=== PATIENT | female | born 1960 | race Caucasian/White ===

== ENCOUNTER → 2017-11-15 | Outpatient (CLI) | payer BC ==
[~2017-11-15] MED LIST: ALPR-411 PO; ATV1 PO; CALC1CHW71 PO; CETI10TA84 PO; CHOL100010 PO; DVN80 PO; ESCI10TA17 PO; ESCI1TAB10 PO; NORE1TAB34 PO; RXC5 PO; SIMV20TA2 PO
--- NOTE | 2017-11-15 10:19 | DIAGNOSTIC IMAGING REPORT ---
CHEST 2 VIEWS ROUTINE CLINICAL HISTORY: 57 years-old Female presenting with preoperative assessment for osteoarthritis of the left knee. TECHNIQUE: PA and lateral views of the chest were obtained. COMPARISON: 01/21/2015. FINDINGS: Cardiomediastinal silhouette normal. Stable calcification projects over the left upper lung either calcified granuloma or related to costochondral calcification. Bandlike opacities at the lung bases as on prior exam. Lungs and pleural spaces otherwise clear. Dextroscoliotic curvature of the thoracic spine. Cholecystectomy clips noted. IMPRESSION: 1. Minimal basilar opacities likely atelectasis or scarring. No convincing evidence of acute cardiopulmonary disease. Electronically signed by: Cristian Small M.D. 11/15/2017 10:18 AM Dictated Date/Time: 11/15/2017 10:16 AM
[2017-11-15 10:23] LABS: BASO % 0.7 %; BASO ABS # 0.06 K/uL (0-0.2); EOS % 2.2 %; HEMATOCRIT 41.4 % (37-47); HEMOGLOBIN 13.4 g/dL (12.0-16.0); IG# 0.01 K/uL (0.00-0.02); LYMPH % 20.1 %; LYMPH ABS # 1.79 K/uL (1.2-3.4); MEAN CELL VOLUME 90.6 fL (80-100); MEAN CORPUSCULAR HEMOGLOBIN 29.3 pg (25-34); MEAN CORPUSCULAR HGB CONC 32.4 g/dl (32-36); MEAN PLATELET VOLUME 10.7 fL (7.4-10.4); MONO % 6.6 %; MONO ABS # 0.59 K/uL (0.11-0.59); NEUT % 70.3 %; NEUT ABS # 6.27 K/uL (1.4-6.5); PLATELET COUNT 309 K/uL (130-400); RED CELL DISTRIBUTION WIDTH SD 46.5 fL (36.4-46.3); WHITE BLOOD COUNT 8.92 K/uL (4.8-10.8)
[2017-11-15 10:33] LABS: PTT PATIENT 25.5 SECONDS (21.0-31.0)
[2017-11-15 11:00] LABS: ALBUMIN 3.8 gm/dl (3.4-5.0); BLOOD UREA NITROGEN 19 mg/dl (7-18); CARBON DIOXIDE 30 mmol/L (21-32); CREATININE 1.01 mg/dl (0.60-1.20); GLUCOSE 83 mg/dl (70-99); POTASSIUM 4.9 mmol/L (3.5-5.1); SODIUM 138 mmol/L (136-145)
[2017-11-15 11:32] LABS: HEMOGLOBIN A1C 5.3 % (4.5-5.6)
== END | disposition home or self-care (01) ==
LOC: C.CPL 08:35
PROVIDERS: ATTEND Orthopaedic Surgery
DX: Z01.812 Encounter for preprocedural laboratory examination (principal); Z01.810 Encounter for preprocedural cardiovascular examination; Z01.818 Encounter for other preprocedural examination; R91.8 Other nonspecific abnormal finding of lung field

== ENCOUNTER 2024-10-20 05:53 | Inpatient (IN) ==
--- NOTE | 2024-09-21 13:35 | PAT Medication Instructions ---
Medication Instructions Date of Service September 21, 2024 Home Medications escitalopram oxalate 20 mg tablet (Lexapro) 20 mg PO QAM simvastatin 20 mg tablet (Zocor) 20 mg PO QPM alprazolam 0.5 mg tablet (Xanax) 0.5 mg PO BID cholecalciferol (vitamin D3) 25 mcg (1,000 unit) tablet 5,000 unit PO QAM denosumab 60 mg/mL subcutaneous syringe (Prolia) 60 mg subcut UD montelukast 10 mg tablet (Singulair) 10 mg PO QPM pantoprazole 40 mg tablet,delayed release (Protonix) 40 mg PO QAM polyethylene glycol 3350 17 gram/dose oral powder (Miralax) 17 g PO DAILY PRN Constipation valsartan 80 mg tablet 80 mg PO QAM acetaminophen 500 mg tablet (Pain Reliever (acetaminophen)) 1,000 mg PO TID PRN Pain hydroxychloroquine 200 mg tablet (Plaquenil) 200 mg PO QAM ASK your prescriber and surgeon denosumab 60 mg/mL subcutaneous syringe (Prolia) 60 mg subcut UD DO NOT take the morning of surgery cholecalciferol (vitamin D3) 25 mcg (1,000 unit) tablet 5,000 unit PO QAM polyethylene glycol 3350 17 gram/dose oral powder (Miralax) 17 g PO DAILY PRN Constipation valsartan 80 mg tablet 80 mg PO QAM Take morning of surgery With a small sip of water, OTHERWISE NOTHING TO EAT OR DRINK AFTER MIDNIGHT: escitalopram oxalate 20 mg tablet (Lexapro) 20 mg PO QAM alprazolam 0.5 mg tablet (Xanax) 0.5 mg PO BID pantoprazole 40 mg tablet,delayed release (Protonix) 40 mg PO QAM acetaminophen 500 mg tablet (Pain Reliever (acetaminophen)) 1,000 mg PO TID PRN Pain (if needed) hydroxychloroquine 200 mg tablet (Plaquenil) 200 mg PO QAM Take evening before surgery simvastatin 20 mg tablet (Zocor) 20 mg PO QPM alprazolam 0.5 mg tablet (Xanax) 0.5 mg PO BID montelukast 10 mg tablet (Singulair) 10 mg PO QPM polyethylene glycol 3350 17 gram/dose oral powder (Miralax) 17 g PO DAILY PRN Constipation (if needed) acetaminophen 500 mg tablet (Pain Reliever (acetaminophen)) 1,000 mg PO TID PRN Pain (if needed) Other Notes If you have any questions please call us at [phone] or [phone] or [phone] or [phone]
--- NOTE | 2024-09-28 10:22 | Anesthesiology Consultation ---
Date of Service September 28, 2024 Assessment & Plan (1) Encounter for pre-operative examination: Chart Review Chart Review: Acceptable Risk for Surgery (pending surgeon ordered PCP clearance ) and Patient NOT seen in Pre Admission Testing - Awaiting PCP clearance 10/10/24 (Dr Black) Scopolamine patch ordered for DOS per patient request (hx of PONV- effective in the past; denies side effects) Per PAT appt on 09/28/24, no recent illness/disease exposures, illness related symptoms, or recent illness/disease positive tests. Will leave to surgeon's discretion if preop Covid testing needed Left Total Knee Arthroplasty 12/14/17= Done under SAB at L3-4 with 1 attempt Teaching & Discussion Pre-Anesthesia Teaching/Discussion Notes: Instructed NPO after midnight before surgery,except medications with 15 cc of water. Medication instructions provided according to the [facility] guidelines. History Surgery Operation Date: 10/20/24 11:05 Proposed Procedures p L4-S1 Hardware Removal, L3-L4 Decompression, L3-S1 Fusion - Manny Enriquez, Height/Weight Height: 5 ft 2 in Weight: 97.2 kg Allergies Allergy/AdvReac Type Severity Reaction Status Date / Time Iodinated Contrast Media Allergy Intermediate Difficulty Verified 09/28/24 10:47 [Iodinated Contrast- Oral Breathing and IV Dye] hydromorphone [From Dilaudid] AdvReac Hallucinati Verified 09/21/24 11:23 ng Medications Home Medications Medication Instructions Recorded Confirmed Last Taken escitalopram oxalate 20 mg tablet 20 mg PO QAM #0 tabs 11/15/17 09/21/24 12/14/17 02:30 (Lexapro) simvastatin 20 mg tablet (Zocor) 20 mg PO QPM #0 tabs 11/15/17 09/21/24 12/13/17 20:30 alprazolam 0.5 mg tablet (Xanax) 0.5 mg PO BID #0 tabs 07/04/24 09/21/24 Unknown cholecalciferol (vitamin D3) 25 5,000 unit PO QAM #0 tabs 07/04/24 09/21/24 Unknown mcg (1,000 unit) tablet denosumab 60 mg/mL subcutaneous 60 mg subcut UD 07/04/24 09/21/24 Unknown syringe (Prolia) montelukast 10 mg tablet 10 mg PO QPM 07/04/24 09/21/24 Unknown (Singulair) pantoprazole 40 mg tablet,delayed 40 mg PO QAM 07/04/24 09/21/24 Unknown release (Protonix) polyethylene glycol 3350 17 17 g PO DAILY PRN Constipation 07/04/24 09/21/24 Unknown gram/dose oral powder (Miralax) valsartan 80 mg tablet 80 mg PO QAM #0 tabs 07/04/24 09/21/24 Unknown acetaminophen 500 mg tablet (Pain 1,000 mg PO TID PRN Pain 09/21/24 09/21/24 Unknown Reliever (acetaminophen)) hydroxychloroquine 200 mg tablet 200 mg PO QAM 09/21/24 09/21/24 Unknown (Plaquenil) Past Medical History Medical History Anxiety Chronic back pain Depression GERD (gastroesophageal reflux disease) well controlled and stable Hiatal hernia History of diverticulitis no recent flares (last flare 11/2023 with perforated bowel) Hx of basal cell carcinoma s/ excision Hx of osteoarthritis Hx of osteoporosis Hx of rheumatoid arthritis Follows with rheum- Dr. Mason Hyperlipidemia Hypertension Lumbar stenosis with neurogenic claudication Morbid obesity with BMI of 40.0-44.9, adult Nausea after anesthesia Peptic ulcer disease hx Scoliosis Exercise / Class Metabolic Activity III < 4 Walking/Shop/Light housework (no chest pain or SOB with flat surface ambulation - no ambulation aids needed ) Past Family History Family History Denies family history of Rheumatoid arthritis Past Surgical History Surgical History Fusion of spine (2014) Lumbar, L4-S1 History of adenoidectomy History of cholecystectomy History of colostomy reversal 03/2024 History of hand surgery multiple History of hysterectomy History of intestinal surgery 11/21/23, w/ colostomy creation; for perforated bowel due to diverticulitis History of tonsillectomy History of tooth extraction History of total left knee replacement (TKR) (2017) Hx of basal cell carcinoma excision Hx of colonoscopy (2023) Past Anesthesia History No Hx of Anesthesia Complications (with exception to PONV ) and No Family Hx of Anesthesia Complications History of PONV No Hx of Motion Sickness and History of PONV (improved with scop patch- requesting scop patch for upcoming procedure ) Social History Smoking Status: Former smoker Do You Dip or Chew Tobacco: No Smoking End Date: 30+ years ago Hx Alcohol Use: Yes alcohol intake frequency: holidays/special occasions only Hx Substance Use: No substance use type: does not use Review of Systems Patient denies chest pain, shortness of breath, dyspnea on exertion, cough, wheezing, palpitations. No hx of seizures, stroke, CA, apnea/snoring. No hx of blood clots or blood transfusions Physical Exam Vital Signs VITALS BP 104/65 P 80 TEMP 98.4 SP02 98% RESP 16 Constitutional no acute distress ENMT Mouth: no TMJ clicking and no chipped teeth Thyromental Distance: > or= 3.5 Finger Breadths (3.5) Mallampati Class: I Top and bottom partial dentures Neck neck extension not limited Respiratory normal respiratory effort; no respiratory distress Auscultation: lungs clear to auscultation bilaterally; no wheezes Cardiovascular Rate/Rhythm: regular rate and regular rhythm Heart Sounds: no murmur Vessels: no carotid bruit Musculoskeletal Spine: no pain with cervical ROM Extremities: extremities normal to inspection Psychiatric Orientation: alert Lab Results Anesthesia Preop Results Results Anesthesia Widget: WBC 9.48 K/ul (4.8-10.8) 09/28/24 Hgb 13.0 g/dl (12.0-16.0) 09/28/24 Hct 40.0 % (37.0-47.0) 09/28/24 Plt 328 K/uL (130-400) 09/28/24 Na 137 mmol/L (136-145) 09/28/24 K 4.5 mmol/L (3.5-5.1) 09/28/24 Cl 102 mmol/L (98-107) 09/28/24 CO2 27 mmol/L (21-32) 09/28/24 BUN 25 mg/dl (6-23) H 09/28/24 Creat 1.00 mg/dl (0.6-1.2) 09/28/24 Glucose Level 95 mg/dl (70-99(Fasting)) 09/28/24 PT 10.3 Seconds (9.0-12.0) 09/28/24 PTT 26 Seconds (21-31) 09/28/24 INR 0.9 (0.9-1.1) 09/28/24 TSH 2.010 uIU/mL (0.30-4.50) 08/16/24 Urine Color Yellow 09/28/24 Urine Appearance Clear (Clear) 09/28/24 Urine pH 5.5 (4.5-7.5) 09/28/24 Urine Specific Center 1.021 (1.000-1.030) 09/28/24 Urine Protein Negative (Negative) 09/28/24 Urine Glucose (UA) Negative (Negative) 09/28/24 Urine Ketones Negative (Negative) 09/28/24 Urine Blood Negative (Negative) 09/28/24 Urine Nitrite Negative (Negative) 09/28/24 Urine Bilirubin Negative (Negative) 09/28/24 Urine Urobilinogen Negative (Negative) 09/28/24 Urine Leukocyte Esterase Trace (Negative) H 09/28/24 Urine WBC (Auto) 0-5 /hpf (0-5) 09/28/24 Urine RBC (Auto) 0-2 /hpf (0-2) 09/28/24 Urine Hyaline Casts (Auto) 0-2 /lpf (0-2) 09/28/24 Urine Epithelial Cells (Auto) 0-2 /hpf (0-2) 09/28/24 Urine Bacteria (Auto) None Seen (None Seen) 09/28/24 Blood Type B Positive 09/28/24 Antibody Screen NEGATIVE 09/28/24 Testing Electrocardiogram Date: 09/28/24 Findings: + NSR @ (75bpm) Normal EKG per cardio Chest X-Ray Date: 09/28/24 Findings: + NAD FINDINGS: Heart size and pulmonary vasculature are normal. No consolidation or pleural effusion. Stable scoliosis Cervical Spine Date: 09/28/24 FINDINGS: No fracture or subluxation. Disc spaces are maintained. No abnormal translation seen with flexion and extension. IMPRESSION: No abnormal translation seen.
[2024-10-20] MEDS: LR 15ML/HR IV SCH (06:41)
[2024-10-20] MEDS: ACETAMINOPHEN 500 MG TAB PO SCH (06:43)
[2024-10-20] MEDS: GABAPENTIN 600 MG DOSE PO SCH (06:43)
[2024-10-20] MEDS: CeleBREX 200 MG CAP PO SCH (06:43)
[2024-10-20] MEDS: LR 60ML/HR IV SCH (06:44)
[2024-10-20] MEDS: SCOPOLAMINE 1 MG/72 HR TDSY PATCH TD ONE (06:53)
[2024-10-20] MEDS ORDERED: PROPOFOL IV EMULSION 10 MG/ML 100 ML VIAL IV ONE (06:54)
[2024-10-20] MEDS ORDERED: ONDANSETRON INJ 2 MG/ML 2 ML VIAL ONE (06:54)
[2024-10-20] MEDS ORDERED: ROCURONIUM BROMIDE 10 MG/ML 5 ML VIAL IV ONE (06:54)
[2024-10-20] MEDS ORDERED: PROPOFOL IV EMULSION 10 MG/ML 20 ML VIAL IV ONE (06:54)
[2024-10-20] MEDS ORDERED: LIDOCAINE 2% 2 ML VIAL/AMP(20MG/ML) INFIL ONE (06:54)
[2024-10-20] MEDS ORDERED: MIDAZOLAM HCL 1 MG/ML 2ML VIAL ONE (06:54)
[2024-10-20] MEDS ORDERED: DEXAMETHASONE SOD INJ 4 MG/ML VIAL ONE (06:54)
[2024-10-20] MEDS ORDERED: SUGAMMADEX SODIUM 200 MG/2 ML VIAL IV ONE ×2 (06:55)
[2024-10-20] MEDS ORDERED: ATROPINE SULFATE 0.1 MG/ML 10ML SYR IV PRN (07:21)
[2024-10-20] MEDS ORDERED: PROMETHAZINE HCL 6.25 MG in SODIUM CHLORIDE 0.9% 50 ML IV PRN (07:21)
--- NOTE | 2024-10-20 07:41 | History & Physical Bridge Note ---
Date of Service October 20, 2024 History & Physical Bridge Note I have examined the patient, reviewed the History & Physical and in the interval since the performance of the History & Physical I have noted the following changes of clinical significance: no changes noted
--- NOTE | 2024-10-20 07:43 | History & Physical Report ---
Date of Service October 20, 2024 Assessment & Plan (1) Multilevel lumbosacral spondylosis with radiculopathy: Plan: Removal of L4-S1 L3-4 decompression, fusion L3-S1 History of Present Illness Chief Complaint: Back and leg pain Primary Care Provider: Khari Black This is a 64-year-old female presents for chronic assessment back and leg pain after failing course of nonoperative care she is here for surgical invention. Allergies Allergy/AdvReac Type Severity Reaction Status Date / Time Iodinated Contrast Media Allergy Intermediate Difficulty Verified 10/20/24 05:59 [Iodinated Contrast- Oral Breathing and IV Dye] hydromorphone [From Dilaudid] AdvReac Severe Hallucinati Verified 10/20/24 05:59 ng Home Medications Medication Instructions Recorded Confirmed Type escitalopram oxalate 20 mg tablet 20 mg PO QAM #0 tabs 11/15/17 10/20/24 History (Lexapro) simvastatin 20 mg tablet (Zocor) 20 mg PO QPM #0 tabs 11/15/17 10/20/24 History alprazolam 0.5 mg tablet (Xanax) 0.5 mg PO BID #0 tabs 07/04/24 10/20/24 History cholecalciferol (vitamin D3) 25 5,000 unit PO QAM #0 tabs 07/04/24 10/20/24 History mcg (1,000 unit) tablet denosumab 60 mg/mL subcutaneous 60 mg subcut UD 07/04/24 10/20/24 History syringe (Prolia) montelukast 10 mg tablet 10 mg PO QPM 07/04/24 10/20/24 History (Singulair) pantoprazole 40 mg tablet,delayed 40 mg PO QAM 07/04/24 10/20/24 History release (Protonix) polyethylene glycol 3350 17 17 g PO DAILY PRN Constipation 07/04/24 10/20/24 History gram/dose oral powder (Miralax) valsartan 80 mg tablet (Diovan) 80 mg PO QAM #0 tabs 07/04/24 10/20/24 History acetaminophen 500 mg tablet (Pain 1,000 mg PO TID PRN Pain 09/21/24 10/20/24 History Reliever (acetaminophen)) hydroxychloroquine 200 mg tablet 200 mg PO QAM 09/21/24 10/20/24 History (Plaquenil) Past Med/Surg History Problem List (Updated 10/20/24 @ 07:43 by Manny Enriquez, DO) Multilevel lumbosacral spondylosis with radiculopathy Rheumatoid arthritis Osteoporosis Hx of total knee arthroplasty Encounter for pre-operative examination Osteoarthritis Medical History Anxiety Chronic back pain Depression GERD (gastroesophageal reflux disease) well controlled and stable Hiatal hernia History of diverticulitis no recent flares (last flare 11/2023 with perforated bowel) Hx of basal cell carcinoma s/ excision Hx of osteoarthritis Hx of osteoporosis Hx of rheumatoid arthritis Follows with rheum- Dr. Mason Hyperlipidemia Hypertension Lumbar stenosis with neurogenic claudication Morbid obesity with BMI of 40.0-44.9, adult Nausea after anesthesia Peptic ulcer disease hx Scoliosis Surgical History Fusion of spine (2014) Lumbar, L4-S1 History of adenoidectomy History of cholecystectomy History of colostomy reversal 03/2024 History of hand surgery multiple History of hysterectomy History of intestinal surgery 11/21/23, w/ colostomy creation; for perforated bowel due to diverticulitis History of tonsillectomy History of tooth extraction History of total left knee replacement (TKR) (2017) Hx of basal cell carcinoma excision Hx of colonoscopy (2023) Family History Denies family history of Rheumatoid arthritis Social History Smoking Status: Former smoker Smoking End Date: 30+ years ago; Second Hand Exposure: No; Do You Dip or Chew Tobacco: No; Tobacco Cessation Education Requested by Patient: No Hx Alcohol Use: Yes Hx Substance Use: No Preferred Language: Wolof Communication Ability: Effective Mining Engineer Required: No Beliefs That Will Affect Care: None Current Living Situation: Spouse Other Information That Helps Us Care for You: No Feels Safe at Home: Yes Safety Concerns: Feels Safe At This Time Assistive Devices: Denture - Upper, Denture - Lower and Glasses Assistive Devices Comment: upper/lower partials Physical Exam Physical Exam: Patient is alert and oriented Heart regular rhythm Lungs clear Results & Data Results & Data Vital Signs (Past 12 Hours) Vital Signs Temp Pulse Resp BP Pulse Ox O2 Del Method 07/18/25 06:15 36.7 C 82 18 105/89 99 Room Air
[2024-10-20] MEDS: ceFAZolin 330 MG/ML 1 GM VIAL ONE (08:26)
[2024-10-20] MEDS: BUPIVACAINE/EPINEPHRINE 0.25% 1:200,000 30 ML VIAL ONE (08:26)
[2024-10-20] MEDS ORDERED: PHENYLEPHRINE 100MCG/ML 5ML SYR ONE (08:31)
[2024-10-20] MEDS ORDERED: ALBUMIN HUMAN 5% 12.5 GM/250 ML VIAL IV ONE (09:15)
[2024-10-20] MEDS: FLOSEAL HEMOSTATIC MATRIX 10ML TOP ONE (09:34)
--- NOTE | 2024-10-20 09:43 | Operative Report ---
Post Operative Report Pre & Post Diagnosis Operation Date: 10/20/24 07:45 Pre-Op Diagnosis: #1 lumbar spondylosis with radiculopathy #2 lumbar spinal stenosis Post-Op Diagnosis: Same I identified the patient and participated in the time-out.: Yes Procedure Operation Date: 10/20/24 07:45 Actual Procedures #1 removal of posterior instrumentation L4-S1. #2 exploration of fusion L4-S1. #3 lumbar decompression with bilateral medial facetectomies and foraminotomies L2-L3 L3-L4. #4 posterior spinal fusion L3-L4. #5 placement of posterior instrumentation L3-S1. #6 interbody fusion L3-L4. #7 placement of Spira 13 x 26 mm at L3-L4. #8 placement locally harvested morselized autograft in the posterolateral gutters. #9 placement infuse collagen sponge, with Koros in the posterior lateral gutters and os design interbody space. #10 placement of versa wrap of the exposed dura. Surgeon Manny Enriquez, DO Beverage Host [place] Child Estimated Blood Loss 100 Findings See Below The patient is 5 foot 2 weighing 97 kg with a BMI in excess of 39. The patient's body habitus did contribute to significant technical difficulty with positioning exposure and the procedure itself adding at least 50% increased operative time. Specimens None Indications This is a 64-year-old female who presents by much diagnosis after failing course of nonoperative care is here for surgical invention. Description of Procedure Patient was met with identified informed consent obtained. Patient was then taken to the operative suite underwent intubation placed in a prone position on the Mert table top of the Marlon frame. All bony prominences well-padded eyes inspected to ensure no external pressure placed upon them. This point lumbar spine was prepped and draped in normal sterile fashion. Sharp dissection with the assistance of Bovie cautery performed down to expose the lamina transverse processes of L3 and instrumentation L4-L5 and S1 levels bilaterally. I then proceeded to remove the hardware bilaterally explored the fusion mass noting it to be mature and intact. Then performed a complete laminectomy of L3 with bilateral male facetectomies and foraminotomies addressing severe neural compression. This was followed by partial laminectomy of L2 with bilateral medial facetectomies to address subarticular stenosis. Pedicle screws were then placed in L3-L4 S1 bilaterally with assistance of fluoroscopy and appropriate his carlene contoured and placed. By way the transforaminal approach on the left complete discectomy of L3-L4 was performed endplates coated to subcortical bleeding bone and a 13 x 26 mm spiral cage filled with os design bone graft ta pped in position. The rods then compressed locked into final position bilaterally. The transverse processes of L3-L4 burred to subcortical bleeding bone. Infuse collagen sponge bath Koros and local autograft placed in the posterior gutters. 15 round DELPHINE inserted. First wrap placed over the exposed dura. Incision was then closed with 1 Vicryl the fascia 2-0 Vicryl subcutaneously and 4 Monocryl for final skin closure. Steri-Strips sterile dressing placed. Patient waken taken to PACU stable condition. Please note [place] record was present at the entire procedure note patient positioning complex portion of the surgery and final skin closure. Im ordering 10 grams of Collagen Powder (HCPCS A6010 Primary Dressing) and 10 bordered super absorbent (HCPCS A6196 Secondary Dressing) to treat an incision wound that was caused by a spine procedure. The incision is approximately 2 cm(W) x 2 cm(L) down to the spinal column and epidural space 2 cm (D) in size and is a full thickness wound showing no signs of infection. Collagen comes in 1 gram packets so 10 packets were ordered. Given the size of the wound, with moderate exudate I chose to order a 10 day supply. The patient will be provided instructions for proper application of the collagen wound kit. The patient will be asked to apply the collagen powder daily and then cover it with sterile dressings dispensed. Collagen was selected as I expect the collagen to attract monocytes and fibroblasts, act as a sacrificial substrate for MMPs, and ultimately proved a matrix for tissue and vessel growth. The collagen will act as a primary dressing in this scenario. It is medically necessary for proper healing of these wounds to improve bioavailability and contact with each wound surface, this is also to help prevent infection of wounds and promote healing ultimately leading to a better healing outcome and limit the risk of infection. I attest to the content of the Intraoperative Record and any orders documented therein. Any exceptions are noted below.
[2024-10-20] MEDS: MoRPHine SULFATE 10 MG/ML CARP/VIAL IV PRN (10:14)
[2024-10-20] MEDS ORDERED: PROMETHAZINE 12.5 MG/50.5 ML BAG IV PRN (11:52)
[2024-10-20] MEDS ORDERED: SOD PHOSPHATE/SOD BIPHOSPHATE ENEMA 132 ML BTL PR PRN (11:52)
[2024-10-20] MEDS ORDERED: MoRPHine SULFATE 4 MG/ML 1 ML CARP\\VIAL IV PRN (11:52)
[2024-10-20] MEDS ORDERED: LORazepam 0.5 MG TAB PO PRN (11:52)
[2024-10-20] MEDS ORDERED: METOCLOPRAMIDE HCL INJ 5 MG/ML 2 ML VIAL IV PRN (11:52)
[2024-10-20] MEDS ORDERED: diphenhydrAMINE Capsule 25 MG CAP PO PRN (11:52)
[2024-10-20] MEDS ORDERED: NALOXONE HCL 0.4 MG/1 ML VIAL/CARP IV PRN (11:52)
[2024-10-20] MEDS ORDERED: MAGNESIUM HYDROXIDE SUSP 30 ML UDC PO PRN (11:52)
[2024-10-20] MEDS ORDERED: ACETAMINOPHEN 1,000 MG/100 ML VIAL IV PRN (11:52)
[2024-10-20] MEDS ORDERED: ALUMINUM/MAGNESIUM SUSP 30 ML UDC PO PRN (11:52)
[2024-10-20] MEDS ORDERED: DO NOT ADMINISTER PNEUMOCOCCAL VACCINE PRN (11:52)
[2024-10-20] MEDS ORDERED: DO NOT ADMINISTER FLU VACCINE PRN (11:52)
[2024-10-20] MEDS: MoRPHine SULFATE 2 MG/ML CARP IV PRN (12:21)
--- NOTE | 2024-10-20 12:26 | Fluoroscopy Report ---
FL lumbar spine 2-3V CLINICAL HISTORY: L4-S1 HARDWARE REMOVAL L3-L4 DECOMP L3-S1 FUSION COMPARISON STUDY: None FLUOROSCOPY TIME: 13 seconds FLUOROSCOPY IMAGES: 3 EXPOSURE DOSE: 11 mGy FINDINGS: Fluoroscopy was provided for lumbar surgery. IMPRESSION: Intraoperative fluoroscopy. ACT 112: Negative or not required by law. Electronically signed by: Ferny Tariq M.D. 10/20/2024 12:25 PM
--- NOTE | 2024-10-20 12:47 | Consultation ---
Date of Consultation October 20, 2024 Assessment & Plan (1) Multilevel lumbosacral spondylosis with radiculopathy: Patient is a 64 year old female with PMH of Rheumatoid arthritis, OA, HTN, lumbar stenosis with neurogenic claudication, BCC s/p excision, presenting with post-op medical management following Removal of L4-S1 instrumentation, L3-4 decompression, and fusion L3-S1. History of spinal fusion with instrumentation in ~2013; about 2 years ago, she developed radiculopathy and pain to BLE limiting mobility. Failed conservative management OP. Has received steroids in the past, but no recent treatment. Reportedly, patient has chronic lymphedema with no outpatient treatment other than compression stockings. Denies history of vascular problems, radiation or chemo, injuries or traumas to the lower extremities. Multilevel lumbosacral spondylosis with radiculopathy: * POD#0 s/p instrumentation removal L4-S1, lumbar decompression with bilateral medial facetectomies and foraminotomies L2-L4, spinal fusion L3-L4, and instrumentation to L3-S1 with Dr. Enriquez. * Per ortho for pain control- Acetaminophen, Oxy, Morphine--> avoid Dilaudid d/t hx hallucinations * Cefazolin and Decadron post-op per Ortho * Wound care per Ortho * Pre-op Hgb 13; EBL 100 + additional 75ml in drain postop. Monitor H&H with AM labs * Encourage incentive spirometry while awake * NV checks Q4H to BLE * Maintain urinary catheter--> d/c when appropriate * O2 as needed to maintain sats >92% * Full liquid diet for now; advance as tolerated * PT/OT when appropriate #Hypertension * BP stable 120/73 post-operative. * Resume home valsartan tomorrow * Trend BP's #Rheumatoid arthritis #OA * Follows Rheumatology for RA/OA; Continue home hydroxychloroquine * PT consult when appropriate DVT Ppx: Scds Code status: Full PCP: Dr. Khari Black Dispo: Admit to [facility] for post-op mgmt s/p laminectomy Patient seen in collaboration with Dr. Garner. Please see addendum.I spent a total of 35 minutes coordinating, documenting and providing care for this patient excluding time spent in the performance of separately billed services or time spent by another provider/QHP. Supervising Physician Co-Signing Physician Notes Patient is a 64-year-old female with history of rheumatoid arthritis, lumbar spinal stenosis with neurogenic claudication and other comorbidities is consulted for postop medical management. Patient underwent lumbar decompression, fusion surgery by Dr. Enriquez today. Postoperatively, patient denies any significant pain at surgical site. Also denies any nausea, vomiting, chest pain, dyspnea. Please review HPI for complete details. I personally reviewed preop labs, home medications and imaging studies. Physical Exam: Vitals signs as noted above General Appearance:Moderately built and nourished, no apparent distress Head: normocephalic, Atraumatic Eyes: normal inspection, EOMI Neck: supple, Trachea midline Respiratory/Chest: Normal breath sounds, CTA, No accessory muscle use Cardiovascular: S1, S2, No murmur Abdomen/GI:Soft, Non tender, Bowel sounds present Back:Surgical site in dressing,+drain Extremities/Musculoskeletal:normal inspection, Trace edema Neurologic/Psych:AAOX3, grossly no focal neurological deficits Skin: normal color, warm lumbar spondylosis with radiculopathy lumbar spinal stenosis S/P lumbar decompression, fusion surgery by Dr. Enriquez on 10/20/2024 Monitor for postop anemia Continue bowel regimen to prevent constipation Pain control, DVT prophylaxis, wound care as per primary team PT OT when appropriate I personally interviewed and examined the patient at bedside. I have reviewed the advanced practitioner's documentation on the date of service referred in note and agree with plan. Patient's care is coordinated with Juju Orta NP. Please refer to the documentation above for details of patient's presentation and for discussion of other issues. I spent a total [id number] coordinating, documenting, and providing care for this patient excluding time spent in the performance of separately billed services or time spent by another provider/QHP. History of Present Illness Attending Physician: Manny Enriquez, DO History of Present Illness Patient is a 64 year old female with PMH of Rheumatoid arthritis, OA, HTN, lumbar stenosis with neurogenic claudication, BCC s/p excision, presenting with post-op medical management following Removal of L4-S1 instrumentation, L3-4 decompression, and fusion L3-S1. History of spinal fusion with instrumentation in ~2013; about 2 years ago, she developed radiculopathy and pain to BLE limiting mobility. Failed conservative management OP. Has received steroids in the past, but no recent treatment. Denies chest pain, shortness of breath, breathing difficulty, headache, cognitive changes, saddle anesthesia symptoms, urinary issues, numbness or tingling to BLE. Reportedly, patient has chronic lymphedema with no outpatient treatment other than compression stockings. Denies history of vascular problems, radiation or chemo, injuries or traumas to the lower extremities. History obtained primarily from the patient. Thank you for this consultation. We will follow the patient with you during their hospital stay. You can reach a member of the [facility] Hospitalist Team 26/10 via [employer]. Allergies Allergy/AdvReac Type Severity Reaction Status Date / Time Iodinated Contrast Media Allergy Intermediate Difficulty Verified 10/20/24 05:59 [Iodinated Contrast- Oral Breathing and IV Dye] hydromorphone [From Dilaudid] AdvReac Severe Hallucinati Verified 10/20/24 05:59 ng Home Medications Medication Instructions Recorded Confirmed Type escitalopram oxalate 20 mg tablet 20 mg PO QAM #0 tabs 11/15/17 10/20/24 History (Lexapro) simvastatin 20 mg tablet (Zocor) 20 mg PO QPM #0 tabs 11/15/17 10/20/24 History alprazolam 0.5 mg tablet (Xanax) 0.5 mg PO BID #0 tabs 07/04/24 10/20/24 History cholecalciferol (vitamin D3) 25 5,000 unit PO QAM #0 tabs 07/04/24 10/20/24 History mcg (1,000 unit) tablet denosumab 60 mg/mL subcutaneous 60 mg subcut UD 07/04/24 10/20/24 History syringe (Prolia) montelukast 10 mg tablet 10 mg PO QPM 07/04/24 10/20/24 History (Singulair) pantoprazole 40 mg tablet,delayed 40 mg PO QAM 07/04/24 10/20/24 History release (Protonix) polyethylene glycol 3350 17 17 g PO DAILY PRN Constipation 07/04/24 10/20/24 History gram/dose oral powder (Miralax) valsartan 80 mg tablet (Diovan) 80 mg PO QAM #0 tabs 07/04/24 10/20/24 History acetaminophen 500 mg tablet (Pain 1,000 mg PO TID PRN Pain 09/21/24 10/20/24 History Reliever (acetaminophen)) hydroxychloroquine 200 mg tablet 200 mg PO QAM 09/21/24 10/20/24 History (Plaquenil) Patient History Medical History Nausea after anesthesia Hx of osteoporosis Hx of osteoarthritis Hx of rheumatoid arthritis Follows with rheum- Dr. Mason History of diverticulitis no recent flares (last flare 11/2023 with perforated bowel) Hx of basal cell carcinoma s/ excision Morbid obesity with BMI of 40.0-44.9, adult Hiatal hernia Chronic back pain Scoliosis GERD (gastroesophageal reflux disease) well controlled and stable Peptic ulcer disease hx Depression Anxiety Hypertension Hyperlipidemia Lumbar stenosis with neurogenic claudication Surgical History Fusion of spine (2014) Lumbar, L4-S1 History of adenoidectomy History of cholecystectomy History of colostomy reversal 03/2024 History of hand surgery multiple History of hysterectomy History of intestinal surgery 11/21/23, w/ colostomy creation; for perforated bowel due to diverticulitis History of tonsillectomy History of tooth extraction History of total left knee replacement (TKR) (2017) Hx of basal cell carcinoma excision Hx of colonoscopy (2023) Family History Denies family history of Rheumatoid arthritis Social History Smoking Status: Former smoker Smoking End Date: 30+ years ago; Second Hand Exposure: No; Do You Dip or Chew Tobacco: No; Tobacco Cessation Education Requested by Patient: No Hx Alcohol Use: Yes Hx Substance Use: No Preferred Language: Bolivian Communication Ability: Effective Medical Examiner Required: No Beliefs That Will Affect Care: None Current Living Situation: Spouse Other Information That Helps Us Care for You: No Feels Safe at Home: Yes Safety Concerns: Feels Safe At This Time Assistive Devices: Denture - Upper, Denture - Lower and Glasses Assistive Devices Comment: upper/lower partials Review of Systems Review of Systems: All systems reviewed & are unremarkable except as noted in HPI & below Physical Exam Physical Exam: VITALS: Reviewed. WEIGHT/BMI reviewed. GEN: Healthy appearing, well-developed, NAD. PSYCH: Good Judgment. AOx3. Normal memory, mood, and affect. HEENT -Head: NC/AT; -Eyes: PERRL, EOMI. No discharge or redn ess; -Ears: External ears are normal. Normal TMs. -Nose: Normal nares. -Mouth and throat: MMM. Normal gums, muc radha, palate,. Good dentition. NECK: Supple, with no masses. CV: RRR, 2/6 systolic murmur LSB, generlized swelling to BLE, compression stockings and SCDs on LUNGS: CTAB, no w/r/c. ABD: Soft, NT/ND, NBS, no masses or organomegaly. : N/A SKIN: Warm, well perfused. No skin rashes or abnormal lesions. Back dressing C/D/I MSK: contractures to DIP joints; BLE strength 4/5 EXT: No clubbing, cyanosis, or edema. NEURO: Normal muscle strength and tone. No focal deficits. CN II-XII grossly intact Results & Data Vital Signs (Past 12 Hours) Vital Signs Temp Pulse Pulse Resp BP BP Pulse Ox 10/20/24 12:20 36.5 C 73 16 124/71 100 10/20/24 11:50 36.8 C 76 16 128/72 100 10/20/24 11:30 73 16 122/63 98 10/20/24 11:15 68 14 122/64 98 10/20/24 11:00 36.5 C 73 20 120/62 100 10/20/24 10:50 74 17 114/62 100 10/20/24 10:40 73 16 103/70 95 10/20/24 10:30 70 14 124/55 L 98 10/20/24 10:20 72 20 108/58 L 99 10/20/24 10:10 75 16 98/51 L 97 10/20/24 10:02 36.1 C L 80 14 130/58 L 96 10/20/24 06:15 36.7 C 82 18 105/89 99 O2 Del Method 10/20/24 12:20 Room Air 10/20/24 11:50 Room Air 10/20/24 11:30 Room Air 10/20/24 11:15 Room Air 10/20/24 11:00 Room Air 10/20/24 10:50 Room Air 10/20/24 10:40 Room Air 10/20/24 10:30 Room Air 10/20/24 10:20 Room Air 10/20/24 10:10 Room Air 10/20/24 10:02 Room Air 10/20/24 06:15 Room Air Diagnostic Findings Lumbar Spine X-Ray 10/20/24 07:45 FL lumbar spine 2-3V CLINICAL HISTORY: L4-S1 HARDWARE REMOVAL L3-L4 DECOMP L3-S1 FUSION COMPARISON STUDY: None FLUOROSCOPY TIME: 13 seconds FLUOROSCOPY IMAGES: 3 EXPOSURE DOSE: 11 mGy FINDINGS: Fluoroscopy was provided for lumbar surgery. IMPRESSION: Intraoperative fluoroscopy. ACT 112: Negative or not required by law. Electronically signed by: Ferny Tariq M.D. 10/20/2024 12:25 PM
--- NOTE | 2024-10-20 14:34 | Anesthesiology Progress Note ---
Date of Service October 20, 2024 Anesthesia Post Procedure Vital Signs Vital Signs: Temp Pulse Pulse Resp BP BP Pulse Ox 10/20/24 12:42 36.4 C L 72 18 120/73 99 10/20/24 12:20 36.5 C 73 16 124/71 100 10/20/24 11:50 36.8 C 76 16 128/72 100 10/20/24 11:30 73 16 122/63 98 10/20/24 11:15 68 14 122/64 98 10/20/24 11:00 36.5 C 73 20 120/62 100 10/20/24 10:50 74 17 114/62 100 10/20/24 10:40 73 16 103/70 95 10/20/24 10:30 70 14 124/55 L 98 10/20/24 10:20 72 20 108/58 L 99 10/20/24 10:10 75 16 98/51 L 97 10/20/24 10:02 36.1 C L 80 14 130/58 L 96 10/20/24 06:15 36.7 C 82 18 105/89 99 O2 Del Method 10/20/24 12:42 Room Air 10/20/24 12:20 Room Air 10/20/24 11:50 Room Air 10/20/24 11:30 Room Air 10/20/24 11:15 Room Air 10/20/24 11:00 Room Air 10/20/24 10:50 Room Air 10/20/24 10:40 Room Air 10/20/24 10:30 Room Air 10/20/24 10:20 Room Air 10/20/24 10:10 Room Air 10/20/24 10:02 Room Air 10/20/24 06:15 Room Air Pain Intensity Bilateral Lower Back: Pain Intensity: 8 Transfer of Care Handoff Completed per policy Notes Mental Status: alert / awake / arousable and participated in evaluation Nausea / Vomiting: adequately controlled Pain: adequately controlled Airway Patency, RR, SpO2: stable & adequate BP & HR: stable & adequate Hydration State: stable & adequate Anesthetic Complications: no major complications apparent and Pt Satisfied with anesthetic care
[2024-10-20] MEDS: DOCUSATE SODIUM/SENNA 50/8.6MG TAB PO SCH (20:11)
[2024-10-20] MEDS: MONTELUKAST SODIUM 10 MG TABLET PO SCH (20:12)
[2024-10-20] MEDS: SIMVASTATIN 20 MG TAB PO SCH (20:12)
[2024-10-21] MEDS: POLYETHYLENE (MIRALAX) 17 GM PACK PO SCH (05:05)
[2024-10-21 07:05] LABS: Hematocrit (blood only) 33.4 % (37.0-47.0); Hemoglobin 10.9 g/dl (12.0-16.0); Immature Granulocytes # (auto) 0.05 K/uL (0.01-0.20); Immature Granulocytes % (auto) 0.4 %; Mean Corpuscular Hemoglobin 28.6 pg (25.0-34.0); Mean Corpuscular Volume 87.7 fL (80.0-100.0); Platelet Count 328 K/uL (130-400); RDW Standard Deviation 41.8 fL (36.4-46.3); Red Blood Count 3.81 M/uL (4.20-5.40); White Blood Count 11.90 K/ul (4.8-10.8)
[2024-10-21 07:20] LABS: Anion Gap 8.0 (3-11); Blood Urea Nitrogen 16.0 mg/dl (6-23); Calcium 7.3 mg/dl (8.6-10.3); Carbon Dioxide 21.0 mmol/L (21-32); Chloride 108.0 mmol/L (98-107); Creatinine Clr Calc Pharmacy 49.4 ml/min; Glucose 107.0 mg/dl (70-99(Fasting)); Magnesium 1.5 mg/dl (1.7-2.4); Potassium 4.0 mmol/L (3.5-5.1); Sodium 137.0 mmol/L (136-145)
--- NOTE | 2024-10-21 08:02 | Orthopedic Progress Note ---
Date of Service October 21, 2024 Assessment & Plan (1) Multilevel lumbosacral spondylosis with radiculopathy: Plan: At this time initiate physical therapy monitor her DELPHINE operatively discharge home the next few days. Admission and Anticipated Discharge Date Admission Date: October 20, 2024 Subjective Back pain controlled leg pain improved Physical Exam Physical Exam: Patient is currently in bed. She is comfortable. Discussed active testing. Results & Data Vital Signs (Past 12 Hours) Vital Signs Temp Pulse Resp BP Pulse Ox O2 Del Method 10/21/24 07:45 36.9 C 100 H 16 95/61 L 93 Room Air 10/21/24 03:22 37.3 C 91 H 16 103/66 97 Room Air 10/21/24 00:00 36.9 C 96 H 16 113/72 95 Room Air Queries Orthopedic Spine Obesity: Yes
[2024-10-21] MEDS ORDERED: VALSARTAN 80 MG TAB PO SCH (09:00)
[2024-10-21] MEDS: ESCITALOPRAM OXALATE 20 MG TAB PO SCH (10:00)
[2024-10-21] MEDS: HYDROXYCHLOROQUINE SULFATE 200 MG TAB PO SCH (10:00)
[2024-10-21] MEDS: CHOLECALCIFEROL 125 MCG (5,000 UNITS) TAB PO SCH (10:00)
[2024-10-21] MEDS: dexAMETHasone 6 MG in SYRINGE 0 ML IV SCH (10:00)
[2024-10-21] MEDS: CALCIUM GLUCONATE 1,000 MG/60 ML BAG IV STA (10:00)
[2024-10-21] MEDS: LACTATED RINGER'S 500 ML IV ONE (10:00)
[2024-10-21] MEDS: LACTATED RINGER'S 1,000 ML IV SCH (12:00)
[2024-10-21] MEDS: MAGNESIUM SULFATE / D5W 1 GM/100 ML BAG IV SCH (12:05)
--- NOTE | 2024-10-21 12:34 | XRay Report ---
Clinical History: Fever Technique: A frontal view of the chest was obtained Comparison is made to the prior examination dated 09/28/2024 Findings: There are no confluent pulmonary infiltrates. The heart size is within normal limits. No pleural effusion or pneumothorax is seen. There is left lung base atelectasis No fracture is noted. There is thoracic scoliosis Impression: Left lung base atelectasis Electronically signed by Juliano Barfield 10-21-2024 12:33 PM
--- NOTE | 2024-10-21 17:07 | Hospitalist Progress Note ---
Date of Service October 21, 2024 Assessment & Plan (1) Multilevel lumbosacral spondylosis with radiculopathy: Plan: Patient is a 64 year old female with PMH of Rheumatoid arthritis, OA, HTN, lumbar stenosis with neurogenic claudication, BCC s/p excision, presenting with post-op medical management following Removal of L4-S1 instrumentation, L3-4 decompression, and fusion L3-S1. History of spinal fusion with instrumentation in ~2013; about 2 years ago, she developed radiculopathy and pain to BLE limiting mobility. Failed conservative management OP. Has received steroids in the past, but no recent treatment. Multilevel lumbosacral spondylosis with radiculopathy: * POD#1 s/p instrumentation removal L4-S1, lumbar decompression with bilateral medial facetectomies and foraminotomies L2-L4, spinal fusion L3-L4, and instrumentation to L3-S1 with Dr. Enriquez. * Per ortho for pain control- Acetaminophen, Oxy, Morphine--> avoid Dilaudid d/t hx hallucinations * Cefazolin and Decadron post-op per Ortho * Wound care per Ortho * Pre-op Hgb 13, trend Hgbn * Encourage incentive spirometry while awake * Maintain urinary catheter--> d/c when appropriate * PT/OT when appropriate #Elevated Creatinine -could be expected post op changes vs. ATN from relative hypotension Plan: -trend creatinine -LR ordered #Hypotension #SIRS Criteria #Leukocytosis * hypotension this morning * could be adverse reaction to anesthesia vs. atelectasis vs. less likely aspiration pneumonitis, developing infection * check chest xray, UA * if still tachycardic, uptrending leukocytosis, will consider culturing, further imaging #Rheumatoid arthritis #OA * Follows Rheumatology for RA/OA; Continue home hydroxychloroquine * PT consult when appropriate I spent a total of 50 minutes in direct patient care, including [id number] time with the patient and/or family, reviewing medical records, ordering and reviewing diagnostic tests, and coordinating care with other healthcare providers. This time includes: history taking, physical examination, medical decision making, counseling, ECG interpretation, imaging interpretation, lab interpretation, orders, and education, excluding time spent in the performance of separately billed services. Admission and Anticipated Discharge Date Admission Date: October 20, 2024 Subjective Patient seen and examined at bedside. Patient hypotensive overnight, not feeling well overall this morning. States she feels fatigued, clammy. Review of Systems Review of Systems: CONSTITUTIONAL: fatigue EYES: Patient denies any visual symptoms. EARS, NOSE, AND THROAT: No difficulties with hearing. No symptoms of rhinitis or sore throat. CARDIOVASCULAR: Patient denies chest pains, palpitations, orthopnea and paroxysmal nocturnal dyspnea. RESPIRATORY: No dyspnea on exertion, no wheezing or cough. GI: No nausea, vomiting, diarrhea, constipation, abdominal pain, hematochezia or melena. : No urinary hesitancy or dribbling. No nocturia or urinary frequency. No abnormal urethral discharge. MUSCULOSKELETAL: No myalgias or arthralgias. NEUROLOGIC: No chronic headaches, no seizures. Patient denies numbness, tingling or weakness. PSYCHIATRIC: Patient denies problems with mood disturbance. No problems with anxiety. ENDOCRINE: No excessive urination or excessive thirst. DERMATOLOGIC: Patient denies any rashes or skin changes. Physical Exam Physical Exam: Gen: A&O 3 NAD, appears ill HEENT: NCAT, EOMI, not icteric. External ears normal. No rhinorrhea. Moist mucous membranes. Neck: Supple, full range of motion, no observable masses, No meningeal sign. Lungs: No Respiratory distress. CV: tachycardic, regular rhythm Abdomen: Soft, nondistended, No rebound tenderness. MSK: No joint swelling, no redness. DELPHINE drain placed s/p procedure Skin: No rashes, petechiae, lesions. Normal color per patient. Neuro: Normal Gait, Grossly intact. Psych: Appropriate for situation. Results & Data Results & Data Vital Signs (Past 12 Hours) Vital Signs Temp Pulse Resp BP BP Pulse Ox O2 Del Method 10/21/24 14:36 36.6 C 94 H 16 95/65 L 95 Room Air 10/21/24 11:07 37.6 C H 98 H 16 91/60 L 95 Room Air 10/21/24 07:45 36.9 C 100 H 16 95/61 L 93 Room Air Laboratory Results -personally reviewed, elevated leukocytosis could be reactive, elevated creatinine post op, low Mg and low calcium replenished Medications Administered Alprazolam (Alprazolam 0.5 Mg Tablet) 0.5 mg PO BID BRENDAN Stop: 11/19/24 20:59 Last Admin: 10/21/24 10:20 Dose: 0.5 mg Documented By: Admin: 10/20/24 20:11 Dose: 0.5 mg Documented By: JOHANNE Escitalopram Oxalate (Escitalopram Oxalate 20 Mg Tab) 20 mg PO QAM BRENDAN Stop: 11/20/24 08:59 Last Admin: 10/21/24 10:00 Dose: 20 mg Documented By: AILEEN Hydroxychloroquine Sulfate (Hydroxychloroquine Sulfate 200 Mg Tab) 200 mg PO QAM BRENDAN Stop: 11/20/24 08:59 Last Admin: 10/21/24 10:00 Dose: 200 mg Documented By: AILEEN Dexamethasone 6 mg/ Syringe 1.5 mls @ 1 mls/min IV DAILY BRENDAN Stop: 10/23/24 09:02 Last Admin: 10/21/24 10:00 Dose: 1 mls/min Documented By: AILEEN Lactated Ringer's (Lr) 1,000 mls @ 100 mls/hr IV .Q10H BRENDAN Stop: 10/22/24 00:00 Last Admin: 10/21/24 12:00 Dose: 100 mls/hr Documented By: AILEEN Montelukast Sodium (Montelukast Sodium 10 Mg Tablet) 10 mg PO QPM BRENDAN Stop: 11/19/24 20:59 Last Admin: 10/20/24 20:12 Dose: 10 mg Documented By: JOHANNE Morphine Sulfate (Morphine Sulfate 2 Mg/Ml Carp) 2 mg IV Q3H PRN PRN Reason: MODERATE Pain(4,5,6)/Pre PT Stop: 11/03/24 11:51 Last Admin: 10/21/24 09:11 Dose: 2 mg Documented By: Admin: 10/21/24 00:51 Dose: 2 mg Documented By: Admin: 10/20/24 18:27 Dose: 2 mg Documented By: Admin: 10/20/24 12:21 Dose: 2 mg Documented By: AILEEN Oxycodone HCl (Oxycodone Hcl Ir 5 Mg Tab (Immediate Release)) 5 - 10 mg PO Q4H PRN PRN Reason: MOD/SEV Pain & Pre PT Stop: 11/03/24 11:51 Last Admin: 10/21/24 14:51 Dose: 5 mg Documented By: Admin: 10/21/24 06:45 Dose: 10 mg Documented By: Admin: 10/20/24 23:04 Dose: 10 mg Documented By: Admin: 10/20/24 15:41 Dose: 10 mg Documented By: AILEEN Pantoprazole Sodium (Pantoprazole 40 Mg Tab) 40 mg PO QAM BRENDAN Stop: 11/20/24 08:59 Last Admin: 10/21/24 10:00 Dose: 40 mg Documented By: AILEEN Polyethylene Glycol (Polyethylene (Miralax) 17 Gm Pack) 17 gm PO Q6 BRENDAN Stop: 11/20/24 05:59 Last Admin: 10/21/24 13:00 Dose: Not Given Documented By: Admin: 10/21/24 05:05 Dose: Not Given Documented By: JOHANNE Senna/Docusate Sodium (Docusate Sodium/Senna 50/8.6mg Tab) 2 tab PO HS BRENDAN Stop: 11/19/24 20:59 Last Admin: 10/20/24 20:14 Dose: Not Given Documented By: JOHANNE Simvastatin (Simvastatin 20 Mg Tab) 20 mg PO QPM BRENDAN Stop: 11/19/24 20:59 Last Admin: 10/20/24 20:12 Dose: 20 mg Documented By: JOHANNE Vitamin D (Cholecalciferol 125 Mcg (5,000 Units) Tab) 125 mcg PO QAM BRENDAN Stop: 11/20/24 08:59 Last Admin: 10/21/24 10:00 Dose: 125 mcg Documented By: AILEEN
[2024-10-21] MEDS: FAMOTIDINE 20 MG TAB PO PRN (20:32)
[2024-10-21] MEDS ORDERED: Nursing to Pharmacy Communication SCH (23:15)
[2024-10-22 05:46] LABS: Hematocrit (blood only) 30.1 % (37.0-47.0); Hemoglobin 9.9 g/dl (12.0-16.0); Mean Corpuscular Hemoglobin 28.8 pg (25.0-34.0); Mean Corpuscular Volume 87.5 fL (80.0-100.0); Platelet Count 239 K/uL (130-400); RDW Standard Deviation 41.3 fL (36.4-46.3); Red Blood Count 3.44 M/uL (4.20-5.40); White Blood Count 8.30 K/ul (4.8-10.8)
[2024-10-22 05:59] LABS: Anion Gap 7.0 (3-11); Blood Urea Nitrogen 19.0 mg/dl (6-23); Calcium 7.7 mg/dl (8.6-10.3); Carbon Dioxide 21.0 mmol/L (21-32); Chloride 106.0 mmol/L (98-107); Creatinine Clr Calc Pharmacy 59.4 ml/min; Glucose 88.0 mg/dl (70-99(Fasting)); Potassium 4.0 mmol/L (3.5-5.1); Sodium 134.0 mmol/L (136-145)
[2024-10-22 06:12] LABS: Magnesium 1.7 mg/dl (1.7-2.4)
[2024-10-22] MEDS ORDERED: SODIUM PHOSPHATE 3 MMOL/1 ML INFUSION IV STA (08:12)
[2024-10-22] MEDS: CALCIUM GLUCONATE 1,000 MG/60 ML BAG IV ONE (09:28)
[2024-10-22] MEDS: ACETAMINOPHEN 500 MG TAB PO PRN (09:30)
--- NOTE | 2024-10-22 09:38 | Orthopedic Progress Note ---
Date of Service October 22, 2024 Assessment & Plan (1) Multilevel lumbosacral spondylosis with radiculopathy: Plan: At this time we will continue physical therapy monitor DELPHINE operatively discharge home tomorrow. Admission and Anticipated Discharge Date Admission Date: October 20, 2024 Subjective Patient's back pain is controlled leg pain improved. Tolerating physical therapy. Physical Exam Physical Exam: On exam patient is in bed. She is comfortable. Distracted testing. Results & Data Vital Signs (Past 12 Hours) Vital Signs Temp Pulse Resp BP Pulse Ox O2 Del Method 10/22/24 07:46 36.9 C 77 16 106/69 98 Room Air Queries Orthopedic Spine Acute Posthemorrhagic Anemia: Yes Obesity: Yes
[2024-10-22] MEDS: SODIUM PHOSPHATE 21 MMOL in SODIUM CHLORIDE 0.9% 500 ML IV ONE (10:20)
[2024-10-22 14:23] LABS: Appearance Urine Clear (Clear); Bacteria Urine Automated None Seen (None Seen); Epithelial Cell Urine Auto 0-2 /hpf (0-2); Glucose Urine UA Negative (Negative); RBC Urine Automated 0-2 /hpf (0-2); WBC Urine Automated 0-5 /hpf (0-5)
--- NOTE | 2024-10-22 14:29 | Hospitalist Progress Note ---
Date of Service October 22, 2024 Assessment & Plan (1) Multilevel lumbosacral spondylosis with radiculopathy: Plan: Patient is a 64 year old female with PMH of Rheumatoid arthritis, OA, HTN, lumbar stenosis with neurogenic claudication, BCC s/p excision, presenting with post-op medical management following Removal of L4-S1 instrumentation, L3-4 decompression, and fusion L3-S1. History of spinal fusion with instrumentation in ~2013; about 2 years ago, she developed radiculopathy and pain to BLE limiting mobility. Failed conservative management OP. Has received steroids in the past, but no recent treatment. Multilevel lumbosacral spondylosis with radiculopathy: * POD#2 s/p instrumentation removal L4-S1, lumbar decompression with bilateral medial facetectomies and foraminotomies L2-L4, spinal fusion L3-L4, and instrumentation to L3-S1 with Dr. Enriquez. * Per ortho for pain control- Acetaminophen, Oxy, Morphine--> avoid Dilaudid d/t hx hallucinations * Cefazolin and Decadron post-op per Ortho * Wound care per Ortho * Pre-op Hgb 13, trend Hgbn * Encourage incentive spirometry while awake * PT/OT #Elevated Creatinine -resolved #Hypotension #SIRS Criteria #Leukocytosis * improved this morning #Rheumatoid arthritis #OA * Follows Rheumatology for RA/OA; Continue home hydroxychloroquine I spent a total of 40 minutes in direct patient care, including [id number] time with the patient and/or family, reviewing medical records, ordering and reviewing diagnostic tests, and coordinating care with other healthcare providers. This time includes: history taking, physical examination, medical decision making, counseling, ECG interpretation, imaging interpretation, lab interpretation, orders, and education, excluding time spent in the performance of separately billed services. Admission and Anticipated Discharge Date Admission Date: October 20, 2024 Subjective Patient seen and examined at bedside. Patient feeling better than yesterday. Review of Systems Review of Systems: CONSTITUTIONAL: fatigue EYES: Patient denies any visual symptoms. EARS, NOSE, AND THROAT: No difficulties with hearing. No symptoms of rhinitis or sore throat. CARDIOVASCULAR: Patient denies chest pains, palpitations, orthopnea and paroxysmal nocturnal dyspnea. RESPIRATORY: No dyspnea on exertion, no wheezing or cough. GI: No nausea, vomiting, diarrhea, constipation, abdominal pain, hematochezia or melena. : No urinary hesitancy or dribbling. No nocturia or urinary frequency. No abnormal urethral discharge. MUSCULOSKELETAL: No myalgias or arthralgias. NEUROLOGIC: No chronic headaches, no seizures. Patient denies numbness, tingling or weakness. PSYCHIATRIC: Patient denies problems with mood disturbance. No problems with anxiety. ENDOCRINE: No excessive urination or excessive thirst. DERMATOLOGIC: Patient denies any rashes or skin changes. Physical Exam Physical Exam: Gen: A&O 3 NAD, appears more vigorous today HEENT: NCAT, EOMI, not icteric. External ears normal. No rhinorrhea. Moist mucous membranes. Neck: Supple, full range of motion, no observable masses, No meningeal sign. Lungs: No Respiratory distress. CV: tachycardic, regular rhythm Abdomen: Soft, nondistended, No rebound tenderness. MSK: No joint swelling, no redness. DELPHINE drain placed s/p procedure Skin: No rashes, petechiae, lesions. Normal color per patient. Neuro: Normal Gait, Grossly intact. Psych: Appropriate for situation. Results & Data Results & Data Vital Signs (Past 12 Hours) Vital Signs Temp Pulse Resp BP Pulse Ox O2 Del Method 10/22/24 13:50 37.1 C 73 16 99/65 L 97 Room Air 10/22/24 07:46 36.9 C 77 16 106/69 98 Room Air Laboratory Results -personally reviewed, phos of 1.5 and calcium of 7.7 replenished, UA unremarkable, creatinine improved with fluids Medications Administered Acetaminophen (Acetaminophen 500 Mg Tab) 1,000 mg PO Q8H PRN PRN Reason: MILD Pain (1,2,3) & Pre PT Stop: 11/19/24 11:51 Last Admin: 10/22/24 09:30 Dose: 1,000 mg Documented By: AILEEN Alprazolam (Alprazolam 0.5 Mg Tablet) 0.5 mg PO BID BRENDAN Stop: 11/19/24 20:59 Last Admin: 10/22/24 09:28 Dose: 0.5 mg Documented By: Admin: 10/21/24 20:32 Dose: 0.5 mg Documented By: Admin: 10/21/24 10:20 Dose: 0.5 mg Documented By: Admin: 10/20/24 20:11 Dose: 0.5 mg Documented By: JOHANNE Escitalopram Oxalate (Escitalopram Oxalate 20 Mg Tab) 20 mg PO QAM BRENDAN Stop: 11/20/24 08:59 Last Admin: 10/22/24 09:30 Dose: 20 mg Documented By: Admin: 10/21/24 10:00 Dose: 20 mg Documented By: AILEEN Famotidine (Famotidine 20 Mg Tab) 20 mg PO Q12H PRN PRN Reason: Dyspepsia Stop: 11/19/24 11:51 Last Admin: 10/21/24 20:32 Dose: 20 mg Documented By: JOHANNE Hydroxychloroquine Sulfate (Hydroxychloroquine Sulfate 200 Mg Tab) 200 mg PO QAM [facility] Stop: 11/20/24 08:59 Last Admin: 10/22/24 09:30 Dose: 200 mg Documented By: Admin: 10/21/24 10:00 Dose: 200 mg Documented By: AILEEN Dexamethasone 6 mg/ Syringe 1.5 mls @ 1 mls/min IV DAILY BRENDAN Stop: 10/23/24 09:02 Last Admin: 10/22/24 09:29 Dose: 1 mls/min Documented By: Admin: 10/21/24 10:00 Dose: 1 mls/min Documented By: AILEEN Cefazolin Sodium (Ancef 2000mg) 2,000 mg in 15 mls @ 3.75 mls/min IV Q8H BRENDAN Stop: 10/29/24 09:59 Last Admin: 10/22/24 10:19 Dose: 3.75 mls/min Documented By: AILEEN Montelukast Sodium (Montelukast Sodium 10 Mg Tablet) 10 mg PO QPM BRENDAN Stop: 11/19/24 20:59 Last Admin: 10/21/24 20:32 Dose: 10 mg Documented By: Admin: 10/20/24 20:12 Dose: 10 mg Documented By: JOHANNE Morphine Sulfate (Morphine Sulfate 2 Mg/Ml Carp) 2 mg IV Q3H PRN PRN Reason: MODERATE Pain(4,5,6)/Pre PT Stop: 11/03/24 11:51 Last Admin: 10/21/24 09:11 Dose: 2 mg Documented By: Admin: 10/21/24 00:51 Dose: 2 mg Documented By: Admin: 10/20/24 18:27 Dose: 2 mg Documented By: Admin: 10/20/24 12:21 Dose: 2 mg Documented By: AILEEN Oxycodone HCl (Oxycodone Hcl Ir 5 Mg Tab (Immediate Release)) 5 - 10 mg PO Q4H PRN PRN Reason: MOD/SEV Pain & Pre PT Stop: 11/03/24 11:51 Last Admin: 10/22/24 06:04 Dose: 5 mg Documented By: Admin: 10/21/24 20:32 Dose: 10 mg Documented By: Admin: 10/21/24 14:51 Dose: 5 mg Documented By: Admin: 10/21/24 06:45 Dose: 10 mg Documented By: Admin: 10/20/24 23:04 Dose: 10 mg Documented By: Admin: 10/20/24 15:41 Dose: 10 mg Documented By: AILEEN Pantoprazole Sodium (Pantoprazole 40 Mg Tab) 40 mg PO QAM [facility] Stop: 11/20/24 08:59 Last Admin: 10/22/24 09:30 Dose: 40 mg Documented By: Admin: 10/21/24 10:00 Dose: 40 mg Documented By: AILEEN Senna/Docusate Sodium (Docusate Sodium/Senna 50/8.6mg Tab) 2 tab PO HS BRENDAN Stop: 11/19/24 20:59 Last Admin: 10/21/24 20:26 Dose: Not Given Documented By: Admin: 10/20/24 20:14 Dose: Not Given Documented By: JOHANNE Simvastatin (Simvastatin 20 Mg Tab) 20 mg PO QPM BRENDAN Stop: 11/19/24 20:59 Last Admin: 10/21/24 20:33 Dose: 20 mg Documented By: Admin: 10/20/24 20:12 Dose: 20 mg Documented By: JOHANNE Vitamin D (Cholecalciferol 125 Mcg (5,000 Units) Tab) 125 mcg PO QAM BRENDAN Stop: 11/20/24 08:59 Last Admin: 10/22/24 09:29 Dose: 125 mcg Documented By: Admin: 10/21/24 10:00 Dose: 125 mcg Documented By: AILEEN
[2024-10-22 15:58] LABS: Thyroid Stimulating Hormone 1.095 uIu/ml (0.300-4.500)
[2024-10-22] MEDS: ONDANSETRON 4 MG OD TAB PO PRN (20:17)
[2024-10-23] MEDS: ONDANSETRON INJ 2 MG/ML 2 ML VIAL IV PRN (02:44)
[2024-10-23 08:02] VITALS: BP 109/71; PULSE 88; RESP 12; TEMP 98.1; O2SAT 98
[2024-10-23 08:10] LABS: Hematocrit (blood only) 33.0 % (37.0-47.0); Hemoglobin 10.4 g/dl (12.0-16.0); Mean Corpuscular Hemoglobin 28.2 pg (25.0-34.0); Mean Corpuscular Volume 89.4 fL (80.0-100.0); Platelet Count 303 K/uL (130-400); RDW Standard Deviation 42.8 fL (36.4-46.3); Red Blood Count 3.69 M/uL (4.20-5.40); White Blood Count 6.10 K/ul (4.8-10.8)
[2024-10-23 08:34] LABS: Anion Gap 7.0 (3-11); Blood Urea Nitrogen 17.0 mg/dl (6-23); Calcium 7.9 mg/dl (8.6-10.3); Carbon Dioxide 25.0 mmol/L (21-32); Chloride 105.0 mmol/L (98-107); Creatinine Clr Calc Pharmacy 63.7 ml/min; Glucose 86.0 mg/dl (70-99(Fasting)); Potassium 3.7 mmol/L (3.5-5.1); Sodium 137.0 mmol/L (136-145)
--- NOTE | 2024-10-23 10:02 | Discharge Summary ---
Date of Service October 23, 2024 Admission HPI Per Admitting Provider This is a 64-year-old female presents for chronic assessment back and leg pain after failing course of nonoperative care she is here for surgical invention. Principal Diagnosis Lumbar spondylosis with radiculopathy Discharge Data Allergies Allergy/AdvReac Type Severity Reaction Status Date / Time Iodinated Contrast Media Allergy Intermediate Difficulty Verified 10/20/24 05:59 [Iodinated Contrast- Oral Breathing and IV Dye] hydromorphone [From Dilaudid] AdvReac Severe Hallucinati Verified 10/20/24 05:59 ng Consultations 10/20/24 11:52 Consult Hospitalist Routine Procedures Performed Operation Date: 10/20/24 07:45 Actual Procedures p L3-L4 Decompression, L3-S1 Fusion(Not Applicable) - Manny Enriquez DO s L4-S1 Hardware Removal(Not Applicable) - Manny Enriquez DO Ordered Studies 10/20/24 07:45 FL lumbar spine 2-3V Routine Hospital Course (1) Multilevel lumbosacral spondylosis with radiculopathy: Patient went lumbar decompression fusion tolerated well second orthopedic for postoperative. Possibly she progressed appropriately marked improvement of her leg pain. DELPHINE drain decreasing. Extra strength testing. Pain controlled. Subsidy discharged home. Discharge orders instructions from the chart for review. Total Time Total Time Spent Total Time Spent (In Minutes): 20 minutes Discharge Plan Discharge Items Patient Disposition: Home - Self-Care Reason For Visit: Single-Level Lumbosacral Spondylosis with Radiculo Discharge Diagnosis: Lumbar spondylosis with radiculopathy Activity: As commented below Non-emergency contact: Primary Care Provider Call non-emergency contact if: you have any medication questions Follow-up/Referrals: Khari Black M.D. [Primary Care Provider] - 10/25/24 2:30 pm Diet: Regular Addtl Attending Provider Instructions: ACTIVITY RECOMMENDATIONS: SELF CARE INSTRUCTIONS AFTER THORACIC/LUMBAR FUSIONS 1. You may walk to your tolerance. It is good exercise for your legs and back. Expect some back and intermittent leg aches and pains. 2. You may perform "counter-top" level activities (make a sandwich, darrel with a project, etc.). 3. No bending or lifting of more than 10 pounds or back twisting of any nature (roll like a log when turning in bed). 4. You may ride in a car for 20-30 minutes at a time. No driving until after your first visit with your doctor. 5. Frequent changes of position and restricting sitting to 30 minutes at a time will help limit the amount of back spasms and stiffness you may experience. 6. You may discontinue the use of ambulatory aids (cane, crutches, etc.) once your strength and confidence allow. 7. You may investigative shopper the shower and let water strike your incision when you arrive home at least once daily. Do not take a tub bath, sit in a hot tub or go into a swimming pool until after your first recheck in the office. 8. You may resume previous diet. SPECIAL CARE INSTRUCTIONS: VERY IMPORTANT TO READ AND REVIEW A. Your surgical incision has been closed with a cosmetic suture under the skin that will dissolve in about 6 weeks. In 14 days, you can use a pair of clean scissors and cut the suture that is left outside of the skin at the ends of your incision. 1. The small skin tapes can be removed 7 days after surgery if they have not fallen off by that point. 2. You may keep the wound open to air as much as possible to promote healing after post-op day number 5 unless told otherwise by your doctor. 3. If you think the wound looks like it is becoming infected (redness or worsening drainage) and/or you are experiencing fever, chill or worsening back pain and muscle spasms, contact the office so that we may evaluate you as soon as possible. B. Complications are uncommon, but please contact us if you have any signs or symptoms of: 1. wound infection (fever higher than 102.5 degrees F, redness, separation of wound, drainage, or increasing pain from the incision) 2. blood clots in legs (pain, swelling, redness and warmth in legs) 3. urinary tract infection (fever higher than 102.5 degrees F, burning upon urination or increased frequency of urination) 4. nerve problems (inability to walk on your toes or heels, numbness, loss of bowel or bladder control) 5. any other symptoms that concern you C. Please call the office at if you have any concerns or questions about your operation or recovery. D. No smoking! Smoking drastically decreases the chance of a solid fusion. E. Do not take any anti-inflammatory medications (Indocin, Advil, Motrin, Aspirin, Naprosyn, etc.) as these may inhibit the chance of a solid fusion. Tylenol is okay to take for pain. MANAGING PAIN AFTER SPINAL SURGERY 1. Narcotic medication is intended for short-term use and will be provided for surgical pain. Surgical pain usually lasts for a period of 4-6 weeks. Narcotic medication includes Percocet, Vicodin, Darvocet, Tylenol #3 or Lortab. 2. Longer-term pain is more appropriately treated with non-narcotic medication such as Tylenol ES. 3. Muscle spasm is not appropriately treated with narcotics. Muscle relaxers such as Soma, Flexeril or Skelaxin can be used along with Tylenol ES. 4. Remember that we all live with some "aches and pains". This is not unusual or uncommon after an injury or as we get older. a. Back pain is expected and may include muscle spasms for 4 to 6 weeks after surgery. The pain should gradually improve. If the pain worsens for no apparent reason, please contact the office. b. Intermittent leg pain may also be experienced and should not be concerned about unless it worsens for no apparent reason. If so, please contact the office. 5. We will provide appropriate medication within the normal guidelines of their prescribed use. We will also be very cautious and aware of potential abuse and extended duration of patients' medication needs. a. Pain medications are for your comfort and to assist with sleep and rest so that the tissue can heal. They are not provided in order to return to normal activity and should not be used through the day. To do so or worsening pain at night can result from ongoing tissue damage and development of tolerance to the prescribed medicine. 6. Please allow 2-3 days to process refills. Prescriptions will not be mailed but must be picked up at the office. FOLLOW UP VISIT: Keep your scheduled follow-up appointment. Any questions, please call the office at . Pending Studies at Discharge: No Stand-Alone Forms: My [employer], Smoking Cessation Medications and DC Order Prescriptions: New tramadol 50 mg tablet 50 mg PO Q6H PRN (Reason: pain, moderate) Qty: 30 0RF oxycodone 5 mg tablet 5 mg PO Q6H PRN (Reason: pain) Qty: 30 0RF Continued simvastatin [Zocor] 20 mg Tablet 20 mg PO QPM Qty: 0 escitalopram oxalate [Lexapro] 20 mg Tablet 20 mg PO QAM Qty: 0 valsartan [Diovan] 80 mg tablet 80 mg PO QAM Qty: 0 cholecalciferol (vitamin D3) 25 mcg (1,000 unit) tablet 5,000 unit PO QAM Qty: 0 alprazolam [Xanax] 0.5 mg tablet 0.5 mg PO BID Qty: 0 pantoprazole [Protonix] 40 mg tablet,delayed release (DR/EC) 40 mg PO QAM Prolia 60 mg/mL syringe 60 mg subcut UD montelukast [Singulair] 10 mg tablet 10 mg PO QPM polyethylene glycol 3350 [Miralax] 17 gram/dose powder 17 g PO DAILY PRN (Reason: Constipation) acetaminophen [Pain Reliever (acetaminophen)] 500 mg tablet 1,000 mg PO TID PRN (Reason: Pain) hydroxychloroquine [Plaquenil] 200 mg tablet 200 mg PO QAM Discharge Orders: Discharge Order (Routine); Ordered 10/23/24 Ordered By: Manny Enriquez Admission Data Admit Date/Time: 10/20/24 09:47 Attending Provider: Manny Enriquez Admit Provider: Manny Enriquez Primary Care Provider: Khari Black Other Providers: Clari Carrera Other Interventions: Discharge Summary Assessment (RN) Last Done: 10/23/24 09:16
--- NOTE | 2024-10-23 14:20 | Hospitalist Progress Note ---
Date of Service October 23, 2024 Assessment & Plan (1) Multilevel lumbosacral spondylosis with radiculopathy: Plan: Patient is a 64 year old female with PMH of Rheumatoid arthritis, OA, HTN, lumbar stenosis with neurogenic claudication, BCC s/p excision, presenting with post-op medical management following Removal of L4-S1 instrumentation, L3-4 decompression, and fusion L3-S1. History of spinal fusion with instrumentation in ~2013; about 2 years ago, she developed radiculopathy and pain to BLE limiting mobility. Failed conservative management OP. Has received steroids in the past, but no recent treatment. Multilevel lumbosacral spondylosis with radiculopathy: * POD#3 s/p instrumentation removal L4-S1, lumbar decompression with bilateral medial facetectomies and foraminotomies L2-L4, spinal fusion L3-L4, and instrumentation to L3-S1 with Dr. Enriquez. * Per ortho for pain control- Acetaminophen, Oxy, Morphine--> avoid Dilaudid d/t hx hallucinations * Cefazolin and Decadron post-op per Ortho * Wound care per Ortho * Pre-op Hgb 13, Hgb acceptable * Encourage incentive spirometry while awake * PT/OT * Patient medically stable for discharge from medicine perspective #Elevated Creatinine -resolved #Hypotension #SIRS Criteria #Leukocytosis * resolved #Rheumatoid arthritis #OA * Follows Rheumatology for RA/OA; Continue home hydroxychloroquine I spent a total of 40 minutes in direct patient care, including [id number] time with the patient and/or family, reviewing medical records, ordering and reviewing diagnostic tests, and coordinating care with other healthcare providers. This time includes: history taking, physical examination, medical decision making, counseling, ECG interpretation, imaging interpretation, lab interpretation, orders, and education, excluding time spent in the performance of separately billed services. Admission and Anticipated Discharge Date Admission Date: October 20, 2024 Subjective Patient seen and examined at bedside. Patient clothed and ready to go home. Review of Systems Review of Systems: CONSTITUTIONAL: none EYES: Patient denies any visual symptoms. EARS, NOSE, AND THROAT: No difficulties with hearing. No symptoms of rhinitis or sore throat. CARDIOVASCULAR: Patient denies chest pains, palpitations, orthopnea and paroxysmal nocturnal dyspnea. RESPIRATORY: No dyspnea on exertion, no wheezing or cough. GI: No nausea, vomiting, diarrhea, constipation, abdominal pain, hematochezia or melena. : No urinary hesitancy or dribbling. No nocturia or urinary frequency. No abnormal urethral discharge. MUSCULOSKELETAL: No myalgias or arthralgias. NEUROLOGIC: No chronic headaches, no seizures. Patient denies numbness, tingling or weakness. PSYCHIATRIC: Patient denies problems with mood disturbance. No problems with anxiety. ENDOCRINE: No excessive urination or excessive thirst. DERMATOLOGIC: Patient denies any rashes or skin changes. Physical Exam Physical Exam: Gen: A&O 3 NAD, appears vigorous today HEENT: NCAT, EOMI, not icteric. External ears normal. No rhinorrhea. Moist mucous membranes. Neck: Supple, full range of motion, no observable masses, No meningeal sign. Lungs: No Respiratory distress. CV: RRR Abdomen: Soft, nondistended, No rebound tenderness. MSK: No joint swelling, no redness. DELPHINE drain placed s/p procedure, decreased drainage Skin: No rashes, petechiae, lesions. Normal color per patient. Neuro: Normal Gait, Grossly intact. Psych: Appropriate for situation. Results & Data Results & Data Vital Signs (Past 12 Hours) Vital Signs Temp Pulse Pulse Resp BP Pulse Ox O2 Del Method 10/23/24 07:59 36.7 C 88 81 12 109/71 98 Room Air Laboratory Results -personally reviewed, Hgb stable post op, no leukocytosis, creatinine downtrending
== END 2024-10-23 11:04 | disposition home or self-care (01) | DRG 402 ==
LOC: ASU 05:53 → 3E 09:47